=== PATIENT | female | born 1995 | race Caucasian/White ===

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

== ENCOUNTER 2017-03-10 16:35 | Inpatient (IN) | payer MEDICAID, OTHER ==
[~2017-03-10] VITALS: Ht 170.2 cm; Wt 69.3 kg
[~2017-03-10 16:35] MED LIST changes: +OLAN5TAB2 PO; -OLAN5Z PO; +VENL-67 PO
[2017-03-10 17:28] LABS: BASOPHILS # (AUTO) 0.03 K/uL (0.00-0.20); BASOPHILS % (AUTO) 0.2 % (0.0-2.0); EOSINOPHILS # (AUTO) 0.22 K/uL (0.00-0.70); HEMATOCRIT 39.1 % (36-46); HEMOGLOBIN 13.1 g/dL (12.0-16.0); LYMPHOCYTES # (AUTO) 2.9 K/uL (1.0-4.8); LYMPHOCYTES % (AUTO) 23.7 % (22.0-44.0); MEAN CORPUSCULAR HEMOGLOBIN 30.8 pg (26.0-34.0); MEAN CORPUSCULAR HGB CONC 33.5 G/dL (31.0-37.0); MEAN CORPUSCULAR VOLUME 92 fL (80-100); MONOCYTES # (AUTO) 1.3 K/uL (0.1-1.0); MONOCYTES % (AUTO) 10.2 % (2.0-9.0); NEUTROPHILS # (AUTO) 7.9 K/uL (1.8-7.7); NEUTROPHILS % (AUTO) 64.1 % (40.0-70.0); PLATELET COUNT (AUTO) 238 K/uL (150-450); RED BLOOD CELL COUNT(AUTO) 4.26 MIL/uL (4.00-5.20); RED CELL DISTRIBUTION WIDTH 14.2 % (11.5-14.5); WHITE BLOOD COUNT (AUTO) 12.4 K/uL (4.5-11.0)
[2017-03-10 17:40] LABS: ANION GAP 7 mmol/L (8-16); CALCIUM, TOTAL 9.2 mg/dL (8.8-10.5); CARBON DIOXIDE 30 mmol/L (22-29); CHLORIDE 102 mmol/L (98-107); CREATININE 0.66 mg/dL (0.60-1.30); GLOMERULAR FILTR. RATE CALC > 60 mL/min (>60); SODIUM SERUM 139 mmol/L (136-145); UREA NITROGEN, BLOOD 18 mg/dL (7-18)
[2017-03-10 17:45] LABS: SALICYLATE < 2.8 mg/dL (2.8-20.0)
[2017-03-10 17:46] LABS: ALANINE AMINOTRANSFERASE 24 U/L (12-78); ASPARTATE AMINOTRANSFERASE 19 U/L (15-37); BILIRUBIN,TOTAL 0.2 mg/dL (0.1-1.0); TOTAL PROTEIN, SERUM 7.4 g/dL (6.4-8.2)
[2017-03-10 17:57] LABS: ACETAMINOPHEN < 2 mcg/mL (10-30); VALPROIC ACID 24 mcg/mL (50-100)
[2017-03-10] MEDS ORDERED: SODIUM CHLORIDE 0.9% 2,000 ML IV ONE (20:15)
[2017-03-11] MEDS ORDERED: INFLUENZA VIRUS VACCINE QVS 2017-18 (3YR+)/PF 60 MCG/0.5 ML SYRINGE IM ONE (03:00)
[2017-03-11 03:45] VITALS: BP 100/61
[2017-03-11 08:00] VITALS: BP 104/71
[2017-03-11] MEDS: OXcarbazepine 300 MG TABLET PO SCH ×2 (08:21→16:07)
[2017-03-11] MEDS: BACITRACIN 28.4 GM OINTMENT TP SCH ×2 (08:23→16:07)
[2017-03-11 08:25] LABS: CHOL/HDL RATIO 1.9 (3.9-5.7)
[2017-03-11] MEDS ORDERED: ACETAMINOPHEN 325 MG TABLET PO PRN (12:15)
[2017-03-11] MEDS ORDERED: IBUPROFEN 400 MG TABLET PO PRN (12:15)
[2017-03-11] MEDS: LORazepam 2 MG TABLET PO PRN (14:02)
[2017-03-11 16:00] VITALS: BP 115/69
[2017-03-11] MEDS: HALOPERIDOL 5 MG TABLET PO PRN (16:06)
[2017-03-11] MEDS: ZOLPIDEM TARTRATE 10 MG TABLET PO PRN (20:40)
[2017-03-12 01:23] VITALS: BP 107/60
[2017-03-12 08:37] VITALS: BP 113/63
[2017-03-12 08:47] LABS: BASOPHILS % (AUTO) 0.3 % (0.0-2.0); EOSINOPHILS % (AUTO) 2.4 % (1.0-6.0); HEMOGLOBIN 13.1 g/dL (12.0-16.0); LYMPHOCYTES # (AUTO) 2.2 K/uL (1.0-4.8); LYMPHOCYTES % (AUTO) 29.9 % (22.0-44.0); MEAN CORPUSCULAR HEMOGLOBIN 31.3 pg (26.0-34.0); MEAN CORPUSCULAR HGB CONC 34.4 G/dL (31.0-37.0); MEAN CORPUSCULAR VOLUME 91 fL (80-100); MONOCYTES # (AUTO) 0.8 K/uL (0.1-1.0); MONOCYTES % (AUTO) 11.1 % (2.0-9.0); NEUTROPHILS # (AUTO) 4.2 K/uL (1.8-7.7); NEUTROPHILS % (AUTO) 56.3 % (40.0-70.0); PLATELET COUNT (AUTO) 244 K/uL (150-450); RED BLOOD CELL COUNT(AUTO) 4.18 MIL/uL (4.00-5.20); WHITE BLOOD COUNT (AUTO) 7.4 K/uL (4.5-11.0)
[2017-03-12] MEDS: OXcarbazepine 300 MG TABLET PO SCH ×2 (08:58→16:05)
[2017-03-12] MEDS: DIVALPROEX SODIUM 500 MG DR TABLET PO SCH ×2 (08:58→16:05)
[2017-03-12] MEDS: BACITRACIN 28.4 GM OINTMENT TP SCH ×2 (08:59→16:05)
[2017-03-12 09:29] LABS: THYROID STIMULATING HORMONE 0.71 uIU/mL (0.36-3.74)
[2017-03-12 10:00] LABS: HEMOGLOBIN A1C 5.3 % (4.5-6.2)
[2017-03-12] MEDS: LORazepam 2 MG TABLET PO PRN (15:01)
[2017-03-12 16:00] VITALS: BP 114/73
[2017-03-12] MEDS: HALOPERIDOL 5 MG TABLET PO PRN (17:47)
[2017-03-12] MEDS: ZOLPIDEM TARTRATE 10 MG TABLET PO PRN (20:54)
[2017-03-13 04:02] VITALS: BP 101/64
[2017-03-13] MEDS: LORazepam 2 MG TABLET PO PRN (06:59)
[2017-03-13 08:29] VITALS: BP 111/61
[2017-03-13] MEDS: OXcarbazepine 300 MG TABLET PO SCH (09:15)
[2017-03-13] MEDS: BACITRACIN 28.4 GM OINTMENT TP SCH (09:15)
[2017-03-13] MEDS: DIVALPROEX SODIUM 500 MG DR TABLET PO SCH (09:15)
[2017-03-13] MEDS ORDERED: OXCA300T PO (11:38)
[2017-03-13] MEDS ORDERED: DIVA500T35 PO (11:38)
[2017-03-13] MEDS ORDERED: BACI30OI6 TP (11:44)
== END 2017-03-13 13:09 | disposition home or self-care (01) | DRG 753 ==
LOC: EMS 16:37 → B2S 03-11 00:31
PROVIDERS: ADMIT Psychiatry & Neurology Psychiatry; ATTEND Psychiatry & Neurology Psychiatry
DX: F31.9 Bipolar disorder, unspecified (principal); G40.909 Epilepsy, unspecified, not intractable, without status epilepticus; D72.829 Elevated white blood cell count, unspecified; F12.90 Cannabis use, unspecified, uncomplicated; S01.81XA Laceration without foreign body of other part of head, initial encounter; S91.119A Laceration without foreign body of unspecified toe without damage to nail, initial encounter; T43.592A Poisoning by other antipsychotics and neuroleptics, intentional self-harm, initial encounter; S50.811A Abrasion of right forearm, initial encounter; S50.812A Abrasion of left forearm, initial encounter; Y93.89 Activity, other specified; Y92.89 Other specified places as the place of occurrence of the external cause; X83.8XXA Intentional self-harm by other specified means, initial encounter
CPT/HCPCS: 83036; 84443; 93005; 96360; 96361; 99285; G0480; G0481; J7030